=== PATIENT | male | born 1940 | race Caucasian/White ===

== ENCOUNTER → 2016-08-06 | Day surgery (SDC) | payer MEDICARE, BC ==
[~2016-08-06] VITALS: Ht 180.3 cm; Wt 97.5 kg
[~2016-08-06] MED LIST: COMBIGAN EYE DRO5 ML OPHTH; PRINIVIL OR ZES10 MG PO; TOPROL XL25 MG PO; TYLENOL WITH C1 EACH PO; ZETIA10 MG PO
--- NOTE | ~2016-08-06 | OR ---
PATIENT'S NAME: [facility] AGE: 75 Y [address] ROOM: [place] [address] LOCATION: [facility] [place] ADMIT DATE: 08/06/2016 OR/Procedure Report DISCHARGE DATE: FAMILY PHYSICIAN: Margarito Márquez MD ATTENDING PHYSICIAN: Merlin Bynum V SURGEON: Merlin Bynum MD PSYCHOLOGICAL ASSISTANT: ALEXUS Ch. DATE OF PROCEDURE: 08/06/2016 PREOPERATIVE DIAGNOSIS: Right submandibular mass. POSTOPERATIVE DIAGNOSIS: Right submandibular mass. OPERATION/PROCEDURE: Excision of right submandibular gland. ANESTHESIA: General endotracheal anesthesia. ESTIMATED BLOOD LOSS: Minimal. COMPLICATIONS: None. DESCRIPTION OF PROCEDURE: The patient was taken to the operating room, laid in supine position with general endotracheal anesthesia. Shoulder roll was placed, and the head was rotated to the left. A proposed incision line was marked and infiltrated with 2% lidocaine with epinephrine solution approximately one-half fingerbreadths below the level of the mandible. Neck was then prepped and draped in the usual sterile fashion using Betadine solution. Approximately 5-cm horizontal neck incision was performed using #15 blade. Subcutaneous tissues and platysma were divided using a #15 blade. Blunt dissection was performed. The marginal mandibular branch of the facial nerve was identified. This was followed anteriorly over the submandibular gland. This was then followed posteriorly. Cervical branch of the facial nerve was divided. The marginal mandibular branch of the facial nerve was reflected superiorly up to the lower margin of the mandible. Blunt dissection was performed along the inferior surface of the submandibular gland, this was followed anteriorly. Subcutaneous fat was divided along the geniohyoid muscle, clamped, and suture ligated using 3-0 silk suture. The fat was taken down to the mylohyoid muscle, extended off to the posterior edge in the mylohyoid muscle. Mylohyoid muscle was reflected anteriorly. The submandibular duct was clamped and suture ligated using 3-0 silk suture. Dissection was performed superiorly. The lingual nerve was followed posteriorly. Submandibular ganglion was clamped and suture ligated using 2-0 silk suture. The gland was then reflected superiorly. The anterior belly of digastric was followed extending up towards adventitial tissue and was divided using scissors. The subcutaneous tissues were divided, extending along the PATIENT'S NAME: [facility] AGE: 75 Y [address] ROOM: [place] [address] LOCATION: [facility] [place] ADMIT DATE: 08/06/2016 OR/Procedure Report DISCHARGE DATE: FAMILY PHYSICIAN: Margarito Márquez MD ATTENDING PHYSICIAN: Merlin Bynum V posterior belly of the digastric, reflecting the gland anteriorly. The facial artery was encountered. This was attached to the posterior aspect of the gland. This was from the gland, clamped, and suture ligated with 3- 0 silk suture. The specimen was removed in total. The neck was then irrigated with copious amounts of bacitracin solution. Hemostasis was adequate. 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 Platysma was reapproximated with interrupted 3-0 Vicryl sutures. Subcuticular skin closure was then performed using a 4-0 Monocryl. Steri-Strips and occlusive dressing were applied. The patient was aroused, extubated, and discharged from the operating room to room in satisfactory condition. MERLIN BYNUM MD TVC/modl /[id number] d: 08/06/[id number] t: 08/20/16 0709, OPERATIVE SUMMARY
[2016-08-06 07:37] LABS: BASOPHIL % 0.2 %; EOSINOPHIL # 0.2 K/uL (0.0-0.5); EOSINOPHIL % 3.9 %; HEMATOCRIT 42.2 % (37.0-53.0); HEMOGLOBIN 13.7 g/dL (11.0-16.0); IMMATURE GRANULOCYTE % 0.4 %; LYMPHOCYTE # 1.7 K/uL (0.8-4.0); LYMPHOCYTE % 36.1 %; MCH 30.6 pg (27.0-34.0); MCHC 32.5 gm/dL (32.0-36.5); MCV 94.2 fl (83.0-98.0); MONOCYTE # 0.5 K/uL (0.0-1.0); MONOCYTE % 10.9 %; MPV 8.5 fl (9.4-12.4); NEUTROPHIL # (ANC) 2.2 K/uL (1.4-9.0); NEUTROPHIL % 48.5 %; NRBC % 0 /100WBC (0-0.00); PLATELET COUNT 158 K/uL (150-450); RBC 4.48 M/uL (3.50-5.50); RDW-CV 13.5 % (11.9-14.6); WBC 4.6 K/uL (4.0-11.0)
[2016-08-06 07:46] LABS: PROTIME 10.5 SECONDS (9.8-11.4)
[2016-08-06 07:59] LABS: ALBUMIN 3.7 gm/dL (3.5-5.0); ALK PHOS 45 IU/L (33-138); ALT 21 IU/L (12-78); ANION GAP 11.2 (10.0-19.0); AST 20 IU/L (10-40); BLOOD UREA NITROGEN 11 mg/dL (6-24); CALCIUM 8.4 mg/dL (8.5-10.5); CHLORIDE 109 mMol/L (96-110); CO2 26 mMol/L (22-32); CREATININE 0.9 mg/dL (0.6-1.3); ESTIMATED GFR (MDRD EQUATION) > 60; POTASSIUM 4.2 mMol/L (3.7-5.1); SODIUM 142 mMol/L (135-145); TOTAL BILIRUBIN 0.8 mg/dL (0.0-1.5); TOTAL PROTEIN 7.4 g/dL (6.0-8.4)
== END ==
LOC: GPOC 07-30 14:00 → GSDC 06:59 → GPOC 07:00 → GSDC 14:00 → GPOC 14:00
PROVIDERS: Otolaryngology
PROC: 0CBG0ZZ Excision of Right Submaxillary Gland, Open Approach (ICD-10-PCS; principal; 2016-08-06)
DX: D11.7 Benign neoplasm of other major salivary glands (principal); I10 Essential (primary) hypertension; K21.9 Gastro-esophageal reflux disease without esophagitis; I25.10 Atherosclerotic heart disease of native coronary artery without angina pectoris; E78.5 Hyperlipidemia, unspecified; E88.81 Metabolic syndrome and other insulin resistance; Z85.51 Personal history of malignant neoplasm of bladder; Z98.890 Other specified postprocedural states; Z85.46 Personal history of malignant neoplasm of prostate; Z79.899 Other long term (current) drug therapy
CPT/HCPCS: J0690; J2001; J3010; J7030